=== PATIENT | male | born 1975 | race Hispanic/Latino ===

== ENCOUNTER 2019-05-28 | Emergency (ER) | payer SELFPAY ==
[2019-05-28] MEDS ORDERED: AMOXICILLIN875 MG PO (12:24)
== END 2019-05-28 12:45 | disposition home or self-care (01) | DRG 153 ==
DX: J02.0 Streptococcal pharyngitis (principal)

== ENCOUNTER 2019-06-18 | Emergency (ER) | payer SELFPAY ==
[~2019-06-18] MED LIST: AMOXICILLIN875 MG PO
[2019-06-18 19:46] LABS: HEMATOCRIT 47.2 % (39.0-50.0); HEMOGLOBIN 15.9 g/dl (14.0-18.0); IMMATURE GRANULOCYTES 0.3 % (0.0-5.0); MEAN CELL VOLUME 89.1 fL CALC (80.0-100.0); MEAN CORPUSCULAR HGB CONC 33.7 g/dL CAL (32.0-36.0); NEUT# 5.19 thou/uL (1.82-7.42); RED BLOOD COUNT 5.3 mill/uL (4.70-6.10); RED CELL DISTRI WIDTH 12.7 % (11.5-15.5)
[2019-06-18 19:51] LABS: URINE BILIRUBIN - DIPSTICK NEGATIVE (NEGATIVE); URINE BLOOD DIPSTICK NEGATIVE (NEGATIVE); URINE COLOR YELLOW; URINE GLUCOSE - DIPSTICK NEGATIVE (NEGATIVE); URINE KETONE NEGATIVE (NEGATIVE); URINE LEUK ESTERASE NEGATIVE (NEGATIVE); URINE NITRITE - DIPSTICK NEGATIVE (Negative); URINE PROTEIN - DIPSTICK NEGATIVE (NEG-TRACE); URINE SPECIFIC GRAVITY >=1.030; URINE UROBILINOGEN - DIPSTICK 0.2 E.U./dL (0.2)
[2019-06-18 19:55] LABS: BARBITURATES NEGATIVE (NEGATIVE); COCAINE NEGATIVE (NEGATIVE); METHADONE NEGATIVE (NEGATIVE); OXCYCODONE NEGATIVE (NEGATIVE); TETRAHYDROCANNABIONOL NEGATIVE (NEGATIVE); TRICYLIC ANTIDEPRESSANTS NEGATIVE (NEGATIVE)
[2019-06-18 20:04] LABS: ALBUMIN 4.8 g/dL (3.2-5.0); ALKALINE PHOSPHATASE 68 u/l (38-126); ANION GAP 14 (6-22 (CALC)); BILIRUBIN, TOTAL 0.6 mg/dL (0.0-1.4); BUN 11 mg/dL (9-20); BUN/CREATININE RATIO 13 (12-20 (CALC)); CARBON DIOXIDE 23 mmol/l (22-30); CHLORIDE 105 mmol/l (95-108); CREATININE 0.9 mg/dL (0.7-1.3); GFR > 60 ML/MIN (>=60 (CALC)); GFR FOR AFR.AMER. > 60 ML/MIN (>=60 (CALC)); POTASSIUM 4.1 mmol/l (3.5-5.1); SGOT/AST 27 u/l (17-59); SODIUM 138 mmol/l (137-146); TOTAL PROTEIN 8.1 g/dL (6.3-8.2)
[2019-06-18] MEDS ORDERED: FIORICET PO (21:14)
== END 2019-06-18 21:26 | disposition home or self-care (01) | DRG 103 ==
PROVIDERS: Emergency Medicine
DX: R51 Headache (principal)

== ENCOUNTER 2019-11-18 21:06 | Emergency (ER) | payer SELFPAY ==
[~2019-11-18] VITALS: Ht 160 cm; Wt 67.2 kg
[~2019-11-18 21:06] MED LIST changes: +FIORICET PO
[2019-11-18] MEDS ORDERED: AMOXICILLIN500 MG PO (21:47)
[2019-11-18 22:23] VITALS: BP 115/70
== END 2019-11-18 22:23 | disposition home or self-care (01) | DRG 153 ==
LOC: ED 21:06
DX: J32.8 Other chronic sinusitis (principal)